=== PATIENT | male | born 1985 | race Caucasian/White ===

== ENCOUNTER 2022-06-22 14:05 | Outpatient (CLI) | payer OTHER, SELFPAY ==
--- NOTE | ~2022-06-22 | XR_ITS ---
EXAM: XR lumbar spine min 4V DATE: 06/22/2022 14:45 HISTORY: Lower back pain with left leg radiation several yrs. . COMPARISON: None available. FINDINGS: 5 nonrib-bearing lumbar-type vertebral bodies. Pedicles intact. 4 mm retrolisthesis at L5- S1. Vertebral body heights preserved. Moderate disc space narrowing at L5-S1. Mild facet sclerosis an d hypertrophy. No pars defect. No fracture or dislocation. IMPRESSION: Grade 1 anterolisthesis at L5-S1. Moderate degenerative disc disease at L5-S1. Mild multi level facet arthropathy. Reviewed, dictated and finalized at location K. [employer] IMPRESSION: Grade 1 anterolisthesis at L5-S1. Moderate degenerative disc diseas e at L5-S1. Mild multilevel facet arthropathy.
[2022-06-22 14:21] LABS: Basophils Absolute Auto 0.04 K/mm3 (0.00-0.10); Basophils Percent Auto 0.7 % (0.0-1.0); Eosinophils Absolute Auto 0.15 K/mm3 (0.02-0.50); Eosinophils Percent Auto 2.5 % (1.0-6.0); Hematocrit 38.1 % (40.0-54.0); Hemoglobin 12.7 g/dL (14.0-18.0); Immature Granulocyte Absolute 0.01 K/mm3 (0.00-0.00); Immature Granulocyte Percent A 0.2 % (0.0-0.0); Lymphocytes Absolute Auto 2.02 K/mm3 (1.10-4.50); Lymphocytes Percent Auto 33.9 % (18.0-42.0); Mean Corpuscular HGB Conc 33.3 g/dL (32.0-36.0); Mean Corpuscular Hemoglobin 33.1 pg (27.0-31.0); Mean Corpuscular Volume 99.2 fL (78.0-102.0); Mean Platelet Volume 9.2 fl (8.7-11.0); Monocytes Absolute Auto 0.64 K/mm3 (0.10-0.90); Monocytes Percent Auto 10.8 % (2.0-11.0); Neutrophils Absolute Auto 3.1 K/mm3 (1.7-7.2); Neutrophils Percent Auto 51.9 % (50.0-70.0); Platelet Count Result 290 K/mm3 (150-420); Red Blood Count 3.84 M/mm3 (4.70-6.10); Red Cell Distribution Width 13.9 % (11.6-14.4)
[2022-06-22 14:48] LABS: Alanine Aminotransferase 25 U/L (16-63); Albumin Level 4.4 g/dL (3.4-5.0); Alkaline Phosphatase 54 U/L (46-116); Anion Gap 8 mmol/L (8-16); Aspartate Amino Transferase 15 U/L (15-37); Bilirubin,Total 0.3 mg/dL (0.00-1.00); Blood Urea Nitrogen 23 mg/dL (7-18); CRP < 0.5 mg/dL (0.0-0.9); Calcium 8.6 mg/dL (8.5-10.1); Carbon Dioxide 27 mmol/L (21-32); Chloride 101 mmol/L (98-108); Estimated Glomerular Filt Rate > 60; Glucose 99 mg/dL (70-99); Osmolality Calculated 285 mOsm/kg (285-295); Potassium 4.2 mmol/L (3.5-5.1); Sodium 136 mmol/L (136-145); Total Protein 7.2 g/dL (6.4-8.2)
[2022-06-22 14:51] LABS: Add Urine Microscopic? NO; Appearance Urine Clear (Clear); Bilirubin Urine Negative (Negative); Blood Urine Negative (Negative); Color Urine Yellow (Yellow); Glucose Urine UA Negative (Negative); Ketones Urine Negative (Negative); Leukocyte Esterase Ur Negative (Negative); Nitrate Urine Negative (Negative); Protein Urine Negative (Negative); Specific Grav Ur >= 1.030 (1.010-1.020); Urobilinogen Urine 0.2 mg/dL (0.2-1.0)
[2022-06-23 14:17] LABS: Ferritin 137 ng/mL (26-388); Iron 128 ug/dL (65-175); Lactate Dehydrogenase 155 U/L (85-227); Percent Iron Saturation 32 % (12-57)
[2022-06-26 16:12] LABS: Red Blood Cell Folate 654 ng/mL RBC (>280)
[2022-06-27 11:07] LABS: Methylmalonic Acid 153 nmol/L (87-318)
== END 2022-06-22 14:06 | disposition home or self-care (01) ==
LOC: CHSLAB 14:07
PROVIDERS: PCP Internal Medicine; Visit Provider Internal Medicine
DX: M54.50 Low back pain, unspecified (principal); M54.16 Radiculopathy, lumbar region; M51.36 Other intervertebral disc degeneration, lumbar region; M43.16 Spondylolisthesis, lumbar region
CPT/HCPCS: 36415; 72110; 80053; 81003; 82728; 82747; 83540; 83550; 83615; 83921; 85025; 86140

== ENCOUNTER 2022-06-27 15:45 | Outpatient (RCR) | payer OTHER, SELFPAY ==
--- NOTE | 2022-06-27 16:31 | PTOPEVAL1 ---
Assessment and note entered by Yaw Baer Evaluation Information Assessment Status Evaluation Diagnosis low back pain Onset 06/23/22 Subjective Information Pt. recalls initially injuring his back in 2020. He reports that he had initial intense pain, but states that it has gotten better. He describes some on/off pain since 2020. He describes pain in the area of the left buttock and across the low back. He has had pain down to the foot, but that has not occurred in sometime. 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 He reports that he does have dull ache across the back. He reports that pain does not wake him at night. He states that he has mm. relaxors but has only taken one. He reports that his goal for therapy is to reduce his low back pain. Reported Pain Level Pain Score 3: Self Report Assessment PT Clinical Summary Pt. is a 37 year old male who enters the clinic with low back pain. He does have hx of spondylolysthesis, however does respond well to extension category activities. He currently presents with l.e. weakness, impaired postural awareness, and pain. Continued skilled PT is indicated in order to improve these areas to allow the pt. to be able to participate in work related activities and IADL's with improved comfort. Plan of Care Interventions Electrical Stimulation,Hot Pack/Cold Pack,Manual Therapy,Patient/Caregiver Educati,Therapeutic Activities,Therapeutic Exercise,Self-Care/Home Management PT Services Indicated Yes Treatment Frequency and 2x/week x 8 visits Duration These treatments will address the objective and functional deficits as defined above. The patient will be advanced safely and appropriately in order for the patient to progress towards his/her prior level of function. Additional exercises will be introduced and as well as a comprehensive home exercise program upon discharge, if needed, ?to ensure carryover of functional gains achieved in the clinic. This treatment plan has been reviewed and agreement upon by the patient.
== END 2022-06-29 13:23 | disposition home or self-care (01) ==
LOC: CHSPT 15:45
PROVIDERS: PCP Internal Medicine; Visit Provider Internal Medicine
DX: M54.50 Low back pain, unspecified (principal)
CPT/HCPCS: 97012; 97014; 97110; 97161; G0283